=== PATIENT | male | born 1965 | race Caucasian/White ===

== ENCOUNTER 2017-05-15 09:08 | Emergency (ER) | payer MEDICAID ==
[~2017-05-15] VITALS: Ht 170.2 cm; Wt 72.0 kg
[2017-05-15 09:13] VITALS: Ht 170.2 cm; Wt 72.0 kg
[2017-05-15] MEDS ORDERED: KETOROLAC 30 MG INJ IM STA (09:17)
[2017-05-15] MEDS ORDERED: DIAZEPAM 5 MG/ML SYG IM ONE (09:30)
--- NOTE | 2017-05-15 10:10 | ERD ---
ER Documentation Chief Complaint Date/Time DATE: 05/15/17 TIME: 10:10 Chief Complaint low back pain x 1 day started when he was trying to pull something HPI This is a 51-year-old male who presents to the emergency room for evaluation of lower back pain for the past 24 hours. This patient states that he was picking something heavy up yesterday while he was at work and he felt a sharp pain in the right lower portion of the back with mild radiation down the right leg. He denies any trauma to the area, denies any numbness or tingling in the right lower extremity. The patient came to the emergency room today for evaluation. Denies any urinary incontinence or urinary retention ROS All systems reviewed and are negative except as per history of present illness. Medications Home Meds No Active Prescriptions or Reported Meds Allergies Allergies: Coded Allergies: No Known Allergy (Unverified , 05/15/17) PMhx/Soc Medical and Surgical Hx: pt denies Medical Hx, pt denies Surgical Hx Hx Alcohol Use: Yes Hx Substance Use: No Hx Tobacco Use: Yes Smoking Status: Current every day smoker Physical Exam Vitals Vital Signs Date Time Temp Pulse Resp B/P Pulse Ox O2 Delivery O2 Flow Rate FiO2 05/15/17 09:13 98.1 76 16 125/84 99 Physical Exam INITIAL VITAL SIGNS: Reviewed by me GENERAL: The patient is well developed and appropriate for usual state of health in no apparent distress HEENT: Pupils equal, round, and reactive to light. EOMI. There is no scleral icterus. NECK: C-spine is soft and supple, there is no meningismus. There is no cervical lymphadenopathy. LUNGS: Clear to auscultation bilaterally. There are no rales, wheezes or rhonchi. HEART: Regular rate and rhythm, no murmurs, clicks, rubs or gallops. ABDOMEN: Soft, non-tender, non-distended. There are bowel sounds in all four quadrants. No rebound or guarding. EXTREMITIES: There is no peripheral cyanosis or edema. No focal swelling or erythema. NEUROLOGICAL: The patient moves all four extremities with 5/5 strength. Cranial nerves II - XII are intact. Normal gait. Alert and oriented SKIN: There is no apparent rash or petechiae. Musculoskeletal: Tenderness to palpation of the paraspinal muscles on the right HEME/LYMPHATIC: There is no evidence of excessive bruising or lymphedema. PSYCHIATRIC: The patient does not appear anxious or depressed. Results 24 hrs Current Medications Medications (Trade) Dose Ordered Sig/Torie Route PRN Reason Start Time Stop Time Status Last Admin Dose Admin Ketorolac Tromethamine (Toradol) 30 mg ONCE STAT IM 05/15/17 09:17 05/15/17 09:18 DC 05/15/17 09:33 Diazepam (Valium) 5 mg ONCE ONCE IM 05/15/17 09:30 05/15/17 09:31 DC 05/15/17 09:33 Procedures/MDM This 51-year-old male presents to the emergency room for evaluation of atraumatic back pain after lifting something heavy. The patient was given Toradol and Motrin here in the emergency room. His examination reveals tenderness to palpation of the paraspinal muscles of the lumbar spine. The patient is afebrile, nontoxic appearing. He is denying any urinary conus, urinary retention or fevers. The patient was given Toradol and Valium intramuscularly and upon my reevaluation he states is feeling better at this time. This patient is ambulating in the emergency room and will be discharged home with a prescription for Motrin, and evaluate for acute lumbar strain. Patient presents today with atraumatic back pain. Although infection, malignancy, GI, , and vascular causes have been considered in this patient, the patient's clinical presentation is most consistent with a musculoskeletal cause. There is neither evidence of any acute neurologic damage, nor of loss of function and thus, advanced imaging studies have been deferred. Patient will be treated conservatively with appropriate pain control precautionary discharge instructions provided. Departure Diagnosis: Primary Impression: Strain of lumbar paraspinal muscle Condition: Stable LUDIVINA MARROQUIN DO May 15, 2017 10:10
[2017-05-15] MEDS ORDERED: DIAZ-90 PO (10:14)
[2017-05-15] MEDS ORDERED: IBUP800T25 PO (10:14)
== END 2017-05-15 10:10 | disposition home or self-care (01) ==
LOC: E/R 09:08
DX: S39.012A Strain of muscle, fascia and tendon of lower back, initial encounter (principal); F17.210 Nicotine dependence, cigarettes, uncomplicated; X50.0XXA Overexertion from strenuous movement or load, initial encounter; Y92.89 Other specified places as the place of occurrence of the external cause
CPT/HCPCS: 96372; J1885; J3360; Z7502